=== PATIENT | male | born 1940 | race Caucasian/White ===

== ENCOUNTER → 2018-01-17 | Outpatient (CLI) | payer MEDICARE, OTHER | END | disposition home or self-care (01) | LOC: LABWHC1 13:49 | PROVIDERS: ATTEND Anesthesiology | DX: Z01.818 Encounter for other preprocedural examination (principal) | CPT/HCPCS: 36415; 93005 ==

== ENCOUNTER 2018-03-06 05:37 | Emergency (ER) | payer MEDICARE, OTHER ==
[2018-03-06 05:45] VITALS: BP 171/79; PULSE 64; RESP 18; TEMP 97.9
--- NOTE | 2018-03-06 05:53 | ED ---
General Adult HPI - General Chief complaint: Fall Stated complaint: Wrist injury Source: patient Mode of arrival: ambulatory Limitations: no limitations - History of Present Illness Initial comments: Dictation was produced using [employer] dictation software. please excuse any grammatical, word or spelling errors. Chief Complaint: 77-year-old male past medical history of dyslipidemia , hypertension presents with left wrist pain. History of Present Illness: Patient states that approximately 6 PM yesterday he was trimming the hedges while standing a ladder. Patient is reaching when he fell off the ladder onto some soft dirt. States that he fell to the ground. When he hit the ground. His left wrist was crushed between tension tremor and the ground. Patient iced it immediately. He immediately experienced pain and some swelling. Presents today because his wrist became much more swollen. Denies any paresthesias to the left hand. Patient has no other complaints. The ROS documented in this emergency department record has been reviewed and confirmed by me. Those systems with pertinent positive or negative responses have been documented in the HPI. All other systems are other negative and/or noncontributory. - Related Data Allergies Allergy/AdvReac Type Severity Reaction Status Date / Time bee venom protein (honey bee) Allergy Anaphylaxis Verified 03/06/18 05:45 Review of Systems ROS Statement: Those systems with pertinent positive or pertinent negative responses have been documented in the HPI. ROS Other: All systems not noted in ROS Statement are negative. Past Medical History Past Medical History: Hyperlipidemia, Hypertension Additional Past Medical History / Comment(s): glaucoma History of Any Multi-Drug Resistant Organisms: None Reported Past Surgical History: Back Surgery, Orthopedic Surgery, Prostate Surgery Additional Past Surgical History / Comment(s): right foot Past Psychological History: No Psychological Hx Reported Smoking Status: Former smoker Past Alcohol Use History: Daily Past Drug Use History: None Reported General Exam - General Exam Comments Initial Comments: PHYSICAL EXAM: General Impression: Alert and oriented x3, not in acute distress HEENT: Normocephalic atraumatic, extra-ocular movements intact, pupils equal and reactive to light bilaterally, mucous membranes moist. Cardiovascular: Heart regular rate and rhythm, S1&S2 audible, no murmurs, rubs or gallops Chest: Lungs clear to auscultation bilaterally, no rhonchi, no wheeze, no rales Abdomen: Bowel sounds present, abdomen soft, non-tender, non-distended, no organomegaly Musculoskeletal: Pulses present and equal in all extremities, no peripheral edema, gross deformity to the left wrist.Snuffbox tenderness Motor: Power 5/5 bilaterally, no focal deficits noted Neurological: CN II-XII grossly intact, no focal motor or sensory deficits noted Skin: Intact with no visualized rashes Psych: Normal affect and mood Limitations: no limitations Course Vital Signs 03/06/18 05:40 Temperature 97.9 F Pulse Rate 64 Respiratory 18 Rate Blood Pressure 171/79 O2 Sat by Pulse 97 Oximetry Medical Decision Making - Medical Decision Making ED course: 7-year-old male presents with left wrist pain after fall. Patient has vital signs within acceptable limits. X-ray of the wrist ordered. X-ray of the wrist was obtained showing comminuted distal fracture extending into the joint. Discussed patient case with orthopedic surgery on-call Dr. Ny who will follow up with patient in clinic today. Patient placed in a short arm volar splint. She appears comfortable. Patient given clinic information to orthopedic surgery. Patient understandable and agreeable to plan. No other suspicion of other acute traumatic injuries at this time. Disposition Clinical Impression: Distal radius fracture, left Disposition: HOME SELF-CARE Condition: Good Instructions: Wrist Fracture in Adults (ED) Is patient prescribed a controlled substance at d/c from ED?: No Referrals: Seven Carnes MD [Primary Care Provider] - 1-2 days Claudy Ny MD [STAFF PHYSICIAN] - 1-2 days Time of Disposition: 06:36
--- NOTE | 2018-03-06 11:27 | XR ---
EXAMINATION TYPE: XR wrist complete LT DATE OF EXAM: 03/06/2018 CLINICAL HISTORY: Fall injury with pain. TECHNIQUE: Frontal, lateral, scaphoid, and oblique images of the left wrist are obtained. COMPARISON: None FINDINGS: There is acute comminuted minimally displaced intra-articular fracture through distal radi al meta-epiphysis. Adjacent ulnar styloid is intact. There is narrowing and subchondral cystic change at base of first metacarpal. The overlying soft tissue appears unremarkable. IMPRESSION: There is acute comminuted minimally displaced intra-articular fracture of distal radial meta-epiphysis. (Initial encounter closed type posttraumatic fracture)
== END 2018-03-06 06:46 | disposition home or self-care (01) ==
LOC: EC 05:37
DX: S52.572A Other intraarticular fracture of lower end of left radius, initial encounter for closed fracture (principal); Z87.891 Personal history of nicotine dependence; Z98.890 Other specified postprocedural states; Z91.030 Bee allergy status; W11.XXXA Fall on and from ladder, initial encounter; Y92.89 Other specified places as the place of occurrence of the external cause; Y93.89 Activity, other specified
CPT/HCPCS: 29125; 99283

== ENCOUNTER → 2019-06-11 | Day surgery (SDC) | payer MEDICARE, OTHER ==
[2019-06-09 08:40] VITALS: BMI 30.4
[~2019-06-11] MED LIST: LACTATED RINGERS 1,000 ML IV SCH; LIDOCAINE 1% 20 ML VIAL (10MG/ML) FOR IV START INTRADERMA ONE; PROPOFOL 10 MG/ML 20 ML VIAL IV ONE
[2019-06-11 10:33] VITALS: TEMP 96.4
--- NOTE | 2019-06-11 12:15 | P.PCN ---
Date of Procedure: 06/11/19 Description of Procedure: BRIEF HISTORY: Patient is a 79-year-old pleasant male scheduled for an elective colonoscopy as a part of screening for malignant neoplasm of the colon. Last colonoscopy approximately 10 years ago normal per the patient's recollection. He denies any change in bowel habits, blood per rectum or abdominal pain. No family history of colon cancer. PROCEDURE PERFORMED: Colonoscopy with polypectomy and argon plasma coagulation therapy. PREOPERATIVE DIAGNOSIS: Screening for malignant neoplasm in the colon, last colonoscopy approximately 10 years ago. ESTIMATED BLOOD LOSS: Minimal. IV sedation per Anesthesia. PROCEDURE: After informed consent was obtained, the patient, was brought into the endoscopy unit. IV sedation was administered by Anesthesia under continuous monitoring. Digital rectal examination was normal. Initially the Olympus CF-190 flexible video colonoscope was then inserted in the rectum, gradually advanced into the cecum without any difficulty. Careful examination was performed as the scope was gradually being withdrawn. Ileocecal valve and the appendiceal orifice were visualized and appeared normal. Prep was excellent. Mucosa of the cecum, ascending colon, transverse colon, descending colon, sigmoid colon, and rectum a ppeared normal. A flat polyp measuring 3 cm in size and appearing to be a tubulovillous polyp was removed from the cecum just adjacent to the appendiceal opening and piecemeal fashion with cold snare polypectomy and then treated with argon plasma coagulation therapy. 2 diminutive polyps one from the rectum and one from the descending colon measuring 1 and 2 mm incisors practically were removed with cold forcep polypectomy. Mild sigmoid diverticulosis. Retroflexion was performed in the rectum and no lesions were seen. The patient tolerated the procedure well. IMPRESSION: Large cecal polyp appearing tubulovillous in nature removed with cold snare polypectomy and treated with argon plasma ablation therapy. 2 diminutive polyps removed from the rectum and descending colon with cold force p polypectomy. Mild sigmoid diverticulosis. RECOMMENDATIONS: Findings of this examination were discussed with the patient and his family. Okay to resume diet, would recommend low fiber low residual for the next week. Okay to resume medications. Await pathology from polypectomies. Anticipate repeat colonoscopy in 3-6 months due to piecemeal resection of the large cecal polyp.
[2019-06-11 12:19] VITALS: RESP 18
[2019-06-11 12:43] VITALS: BP 134/81; PULSE 55
== END | disposition home or self-care (01) ==
LOC: ORWHC2ENDO 10:22
PROVIDERS: ATTEND Internal Medicine
DX: Z12.11 Encounter for screening for malignant neoplasm of colon (principal); D12.0 Benign neoplasm of cecum; D12.4 Benign neoplasm of descending colon; K57.30 Diverticulosis of large intestine without perforation or abscess without bleeding; K62.1 Rectal polyp; Z91.030 Bee allergy status; I10 Essential (primary) hypertension; E78.5 Hyperlipidemia, unspecified; Z79.82 Long term (current) use of aspirin; Z79.899 Other long term (current) drug therapy
CPT/HCPCS: 88305; 45380; 45385; 45388; J2704